=== PATIENT | female | born 1995 | race Caucasian/White ===

== ENCOUNTER 2020-01-03 13:29 | Emergency (ER) | payer OTHER ==
[~2020-01-03] VITALS: Ht 157.5 cm; Wt 69.8 kg
[2020-01-03 14:34] LABS: BASO # 0.1 10^3/uL (0.0-0.2); BASO % 0.6 % (0.0-1.0); EOS # 0.1 10^3/uL (0.0-0.5); EOS % 1.4 % (0.0-3.0); HEMATOCRIT 43.1 % (36.0-47.0); HEMOGLOBIN 14.1 g/dl (12.0-15.5); LYMPH # 2.7 10^3/uL (1.5-5.0); LYMPH % 31.2 % (24.0-44.0); MEAN CORPUSCULAR HEMOGLOBIN 28.6 pg (27.0-33.0); MEAN CORPUSCULAR HGB CONC 32.7 g/dl (32.0-36.5); MEAN CORPUSCULAR VOLUME 87.4 fl (80.0-96.0); MONO # 0.6 10^3/uL (0.0-0.8); MONO % 7.4 % (0.0-5.0); NEUTROPHILS # 5.1 10^3/uL (1.5-8.5); PLATELET COUNT, AUTOMATED 359 10^3/uL (150-450); RED BLOOD COUNT 4.93 10^6/uL (4.00-5.40); WHITE BLOOD COUNT 8.6 10^3/uL (4.0-10.0)
[2020-01-03 15:08] LABS: HCG, SERUM QUALITATIVE NEGATIVE (NEGATIVE)
[2020-01-03 15:13] LABS: ALBUMIN 4.5 GM/DL (3.2-5.2); ALT/SGPT 74 U/L (12-78); BILIRUBIN,DIRECT 0.1 MG/DL (0.0-0.2); BILIRUBIN,TOTAL 0.3 MG/DL (0.2-1.0); BLOOD UREA NITROGEN 7 MG/DL (7-18); CALCIUM LEVEL 10.1 MG/DL (8.5-10.1); CARBON DIOXIDE LEVEL 28 MEQ/L (21-32); CHLORIDE LEVEL 105 MEQ/L (98-107); CREATININE FOR GFR 0.72 MG/DL (0.55-1.30); GLOMERULAR FILTRATION RATE > 60.0 (>60); GLUCOSE, FASTING 75 MG/DL (70-100); LIPASE 97 U/L (73-393); POTASSIUM SERUM 3.7 MEQ/L (3.5-5.1); SODIUM LEVEL 139 MEQ/L (136-145); TOTAL PROTEIN 8.6 GM/DL (6.4-8.2)
--- NOTE | 2020-01-03 16:20 | REPVR ---
PROCEDURE INFORMATION: Exam: US Pelvis Complete, Transabdominal and US Pelvis, Transvaginal and US Duplex Artery and Vein, Ovaries, Complete Exam date and time: 01/03/2020 3:46 PM Age: 24 years old Clinical indication: Pelvic pain; Additional info: HX of R ovarian cyst, R sided pain TECHNIQUE: Imaging protocol: Real-time transabdominal and transvaginal pelvic ultrasound (complete) with image documentation. Transvaginal imaging was used for better evaluation of the endometrium, adnexa, and/or cervix. Real-time duplex ultrasound scan of the arterial and venous flow of the ovaries with B-mode, color Doppler flow and spectral waveform analysis. COMPARISON: No relevant prior studies available. FINDINGS: Uterus/cervix: Uterus is normal. Endometrial stripe is normal. Mild nonspecific cervical prominence. Right ovary: 2.8 x 2.9 x 3.2 cm. 1.8 x 1.4 x 1.5 cm thick-walled, complex cystic lesion, suggestive of a corpus luteal cyst. No solid mass. Normal ovarian blood flow. Left ovary: Not visualized. Intraperitoneal space: Small nonspecific free pelvic fluid, likely physiologic. Urinary bladder: Normal. IMPRESSION: 1. 1.8 x 1.4 x 1.5 cm thick-walled, complex cystic lesion, suggestive of a corpus luteal cyst. 2. Mild nonspecific cervical prominence, of uncertain clinical significance. Consider gynecologic evaluation. Please note that this report is predicated on a negative urine test. Electronically signed by: Theo Anne On 01/03/2020 16:20:08 PM
[2020-01-03] MEDS ORDERED: IBUP-1022 PO (16:58)
[2020-01-03 17:05] VITALS: BP 137/67
== END 2020-01-03 17:14 | disposition home or self-care (01) ==
LOC: M ED 13:29
DX: N88.4 Hypertrophic elongation of cervix uteri (principal); N83.201 Unspecified ovarian cyst, right side; R19.7 Diarrhea, unspecified; R11.0 Nausea; Z88.8 Allergy status to other drugs, medicaments and biological substances

== ENCOUNTER → 2022-09-14 | Outpatient (REF) | payer OTHER ==
[~2022-09-14] MED LIST: IBUP-1022 PO
== END ==
LOC: M SFHCWAGY 13:46
PROVIDERS: ATTEND Nurse Practitioner Family
DX: Z12.4 Encounter for screening for malignant neoplasm of cervix (principal)

== ENCOUNTER → 2022-10-18 | Outpatient (CLI) | payer OTHER | LOC: M WHC 12:21 | PROVIDERS: ATTEND Nurse Practitioner Family | DX: N63.21 Unspecified lump in the left breast, upper outer quadrant (principal); N63.10 Unspecified lump in the right breast, unspecified quadrant ==

== ENCOUNTER → 2023-09-15 | Outpatient (CLI) | payer OTHER ==
[2023-09-15 13:51] LABS: HEMATOCRIT 35.3 % (36.0-47.0); MEAN CORPUSCULAR HEMOGLOBIN 29.3 pg (27.0-33.0); MEAN CORPUSCULAR VOLUME 86.1 fl (80.0-96.0); PLATELET COUNT, AUTOMATED 335 10^3/uL (150-450); WHITE BLOOD COUNT 10.6 10^3/uL (4.0-10.0)
[2023-09-15 14:51] LABS: HIV 1&2 SCREEN NEGATIVE (NEGATIVE)
[2023-09-15 14:59] LABS: HEPATITIS C VIRUS ABY INDEX < 0.02 INDEX (<0.8)
[2023-09-15 15:32] LABS: GC DNA AMPLIFICATION NEGATIVE (NEGATIVE)
== END ==
LOC: M PLALAB 10:59
PROVIDERS: ATTEND Advanced Practice Midwife
DX: O99.211 Obesity complicating pregnancy, first trimester (principal); E66.9 Obesity, unspecified; Z3A.00 Weeks of gestation of pregnancy not specified

== ENCOUNTER → 2023-09-30 | Outpatient (CLI) | payer OTHER | LOC: M PLALAB 11:45 | PROVIDERS: ATTEND Advanced Practice Midwife | DX: Z34.80 Encounter for supervision of other normal pregnancy, unspecified trimester (principal); Z3A.00 Weeks of gestation of pregnancy not specified ==

== ENCOUNTER → 2023-11-24 | Outpatient (CLI) | payer OTHER, SELFPAY | LOC: M RAD 06:26 | PROVIDERS: ATTEND Obstetrics & Gynecology | DX: Z34.02 Encounter for supervision of normal first pregnancy, second trimester (principal) ==

== ENCOUNTER → 2024-01-02 | Outpatient (CLI) | payer OTHER ==
[2024-01-02 15:49] LABS: HEMATOCRIT 32.1 % (36.0-47.0); HEMOGLOBIN 10.6 g/dl (12.0-15.5); MEAN CORPUSCULAR HEMOGLOBIN 28.8 pg (27.0-33.0); MEAN CORPUSCULAR VOLUME 87.2 fl (80.0-96.0); PLATELET COUNT, AUTOMATED 307 10^3/uL (150-450); RED BLOOD COUNT 3.68 10^6/uL (4.00-5.40); WHITE BLOOD COUNT 11.5 10^3/uL (4.0-10.0)
[2024-01-02 16:18] LABS: GLUCOSE CHALLENGE TEST 1 HOUR 114 MG/DL (LESS THAN 140)
[2024-01-02 16:46] LABS: HIV 1&2 SCREEN NEGATIVE (NEGATIVE)
[2024-01-02 16:53] LABS: HEPATITIS C VIRUS ABY INDEX 0.02 INDEX (<0.8)
[2024-01-02 17:50] LABS: GC DNA AMPLIFICATION NEGATIVE (NEGATIVE)
== END ==
LOC: M PLALAB 12:24
PROVIDERS: ATTEND Obstetrics & Gynecology
DX: Z34.80 Encounter for supervision of other normal pregnancy, unspecified trimester (principal); Z3A.00 Weeks of gestation of pregnancy not specified

== ENCOUNTER → 2024-03-16 | Outpatient (REF) | payer OTHER | LOC: M SFHCWAGY 17:00 | PROVIDERS: ATTEND Specialist | DX: Z34.03 Encounter for supervision of normal first pregnancy, third trimester (principal) ==

== ENCOUNTER → 2024-03-20 | Outpatient (CLI) | payer OTHER ==
[2024-03-20 13:19] LABS: HEMATOCRIT 30.2 % (36.0-47.0); HEMOGLOBIN 9.3 g/dl (12.0-15.5); MEAN CORPUSCULAR HEMOGLOBIN 23.8 pg (27.0-33.0); MEAN CORPUSCULAR HGB CONC 30.8 g/dl (32.0-36.5); MEAN CORPUSCULAR VOLUME 77.4 fl (80.0-96.0); PLATELET COUNT, AUTOMATED 287 10^3/uL (150-450); WHITE BLOOD COUNT 9.7 10^3/uL (4.0-10.0)
[2024-03-20 13:40] LABS: URIC ACID 5.5 MG/DL (3.1-7.8)
[2024-03-20 13:42] LABS: LDH LACTATE DEHYDROGENASE 166 U/L (120-246)
[2024-03-20 13:43] LABS: ALT/SGPT 21 U/L (7.0-40); AST/SGOT 16 U/L (<34); BILIRUBIN,TOTAL 0.3 MG/DL (0.3-1.2); CREATININE FOR GFR 0.53 MG/DL (0.55-1.30); GLOMERULAR FILTRATION RATE > 60.0 (>60)
[2024-03-20 13:48] LABS: TOTAL PROTEIN,RANDOM URINE 10.5 MG/DL (0.0-14.0)
[2024-03-20 13:52] LABS: CREATININE,RANDOM URINE 41.3 MG/DL
== END ==
LOC: M PLALAB 11:24
PROVIDERS: ATTEND Specialist
DX: Z34.03 Encounter for supervision of normal first pregnancy, third trimester (principal)

== ENCOUNTER 2024-03-28 15:45 | Inpatient (IN) | payer OTHER ==
[~2024-03-28] VITALS: Ht 157.5 cm; Wt 91.2 kg
[2024-03-28] MEDS: miSOPROStol 50MCG 1/2 TABLET PO SCH (16:00)
[2024-03-28] MEDS ORDERED: CARBOPROST TROMETHAMINE 250 MCG/ML AMP IM PRN (16:00)
[2024-03-28] MEDS ORDERED: TRANEXAMIC ACID INJection 1,000 MG in NS 100 ML IV PRN (16:00)
[2024-03-28] MEDS ORDERED: OXYTOCIN INJ 10UNITS/ML 1ML VIAL IM PRN (16:00)
[2024-03-28] MEDS ORDERED: LIDOCAINE 1% MDV 20ML VIAL INFIL PRN (16:00)
[2024-03-28] MEDS ORDERED: OXYTOCIN DRIP 30 UNITS in IV 1 EA IV PRN (16:00)
[2024-03-28] MEDS ORDERED: TUMS500C PO (16:04)
[2024-03-28] MEDS ORDERED: HOME MED LIST COMPLETE! XX SCH (16:05)
[2024-03-28] MEDS ORDERED: PRENTAB9 PO (16:05)
[2024-03-28 16:33] VITALS: BP 137/85
[2024-03-28 17:43] VITALS: BP 147/75
[2024-03-28 17:45] LABS: HEMOGLOBIN 9.2 g/dl (12.0-15.5); MEAN CORPUSCULAR HEMOGLOBIN 23.8 pg (27.0-33.0); MEAN CORPUSCULAR HGB CONC 31.7 g/dl (32.0-36.5); MEAN CORPUSCULAR VOLUME 74.9 fl (80.0-96.0); PLATELET COUNT, AUTOMATED 300 10^3/uL (150-450); RED BLOOD COUNT 3.87 10^6/uL (4.00-5.40); WHITE BLOOD COUNT 11.3 10^3/uL (4.0-10.0)
[2024-03-28 18:06] LABS: URIC ACID 5.4 MG/DL (3.1-7.8)
[2024-03-28 18:08] LABS: CREATININE,RANDOM URINE 55.6 MG/DL; LDH LACTATE DEHYDROGENASE 174 U/L (120-246)
[2024-03-28 18:09] LABS: ALT/SGPT 26 U/L (7.0-40); AST/SGOT 20 U/L (<34); BILIRUBIN,TOTAL 0.3 MG/DL (0.3-1.2); CREATININE FOR GFR 0.49 MG/DL (0.55-1.30); GLOMERULAR FILTRATION RATE > 60.0 (>60)
[2024-03-28 18:40] VITALS: BP 153/76
[2024-03-28 18:49] LABS: HEPATITIS C VIRUS ABY INDEX < 0.02 INDEX (<0.8)
[2024-03-28 20:00] VITALS: BP 137/63
[2024-03-28 23:35] VITALS: BP 126/63
[2024-03-29] VITALS (32 sets, daily range): BP systolic 115–147; BP diastolic 55–88
[2024-03-29] MEDS: diphenhydrAMINE 50MG/ML VIAL IV ONE (02:25)
[2024-03-29] MEDS: PROMETHAZINE 25MG/ML 1ML VIAL IV ONE (05:16)
[2024-03-29] MEDS: BUTORPHANOL 2 MG/ML 1ML VIAL IV ONE (05:16)
[2024-03-29] MEDS: LR 1,000 ML IV SCH ×2 (11:37→22:55)
[2024-03-29] MEDS: OXYTOCIN DRIP 30 UNITS in IV 1 EA IV SCH ×2 (11:37→22:55)
[2024-03-29] MEDS ORDERED: ONDANSETRON 4MG 2ML VIAL IV PRN ×2 (14:35→22:55)
[2024-03-29] MEDS ORDERED: LR 500 ML IV PRN (14:35)
[2024-03-29] MEDS ORDERED: ePHEDrine SULFATE 25 MG/5 ML(5MG/ML) SYRINGE IVP PRN (14:35)
[2024-03-29] MEDS ORDERED: EPIDURAL/PCA KEYS XX PRN (14:35)
[2024-03-29] MEDS ORDERED: NALOXONE INJ 0.4MG/1ML VIAL IV PRN (14:35)
[2024-03-29] MEDS ORDERED: diphenhydrAMINE 50MG/ML VIAL IV PRN (14:35)
[2024-03-29] MEDS: FENTANYL/ROPIVACAINE/NACL BAG 100 ML EPIDURAL SCH (15:25)
[2024-03-29] MEDS ORDERED: CALCIUM CARBONATE 500 MG CHEW U/D PO PRN (22:55)
[2024-03-29] MEDS ORDERED: ANUSOL HC CREAM 30GM TOP PRN (22:55)
[2024-03-29] MEDS ORDERED: METHYLERGONOVINE MALEATE 0.2 MG TAB PO PRN (22:55)
[2024-03-29] MEDS ORDERED: RHOGAM 300MCG (1500IU) INJ IM SCH (22:55)
[2024-03-29] MEDS ORDERED: ACETAMINOPHEN 325 MG TAB PO PRN (22:55)
[2024-03-30 00:40] VITALS: BP 139/82; O2SAT 100
[2024-03-30] MEDS: DIBUCAINE 1% OINTMENT 30GM TOP PRN (01:00)
[2024-03-30] MEDS: DOCUSATE SODIUM 100MG CAPSULE PO PRN (01:01)
[2024-03-30] MEDS: IBUPROFEN 800 MG TAB PO PRN (01:01)
[2024-03-30] MEDS: ACETAMINOPHEN 500 MG TAB PO PRN (05:48)
[2024-03-30 06:08] VITALS: BP 115/43; O2SAT 99
[2024-03-30] MEDS: PRENATAL VITAMINS CHEWABLE TABLET PO SCH (08:46)
[2024-03-30] MEDS: IBUPROFEN 600MG TAB PO PRN (10:32)
[2024-03-30 18:10] VITALS: BP 143/83; O2SAT 99
[2024-03-31 06:00] VITALS: BP 123/71; O2SAT 99
[2024-03-31] MEDS: MEASLES,MUMPS,RUBELLA VACCINE INJ (MMR-II) SC.IMMUN ONE (09:00)
== END 2024-03-31 14:41 | disposition home or self-care (01) | DRG 807 ==
LOC: M LDI 15:45 → M OBS 03-30 00:28
PROVIDERS: ADMIT Advanced Practice Midwife; ATTEND Advanced Practice Midwife
PROC: 10E0XZZ Delivery of Products of Conception, External Approach (ICD-10-PCS; principal; 2024-03-29)
PROC: F13Z0ZZ Hearing Screening Assessment (ICD-10-PCS; 2024-03-29)
DX: O13.4 Gestational [pregnancy-induced] hypertension without significant proteinuria, complicating childbirth (principal); Z37.0 Single live birth; Z3A.38 38 weeks gestation of pregnancy; O70.1 Second degree perineal laceration during delivery